=== PATIENT | female | born 1980 | race Caucasian/White ===

== ENCOUNTER 2021-04-21 15:20 | Outpatient (CLI) | payer OTHER ==
[2021-04-21 18:26] LABS: HIV (1/2) Antibody/Antigen Non-Reactive (NonReactive); HIV 1/2 INDEX 0.06 S/CO (<1.00); Hep C IgG Ab Non-Reactive (NonReactive); Hep C Index 0.06 S/CO (0-0.79)
[2021-04-21 19:40] LABS: Hep B Surf AB Indeterminate (NonReactive)
[2021-04-21 19:41] LABS: HBSAB Concentration 11.32 mIU/mL
== END 2021-04-21 15:21 | disposition home or self-care (01) ==
LOC: BICRAD 15:20
PROVIDERS: ATTEND Physician Assistant Medical
DX: S69.92XA Unspecified injury of left wrist, hand and finger(s), initial encounter (principal)
CPT/HCPCS: 86706; 86803; 87389